=== PATIENT | female | born 1995 | race Caucasian/White ===

== ENCOUNTER 2024-06-22 08:04 | Outpatient (AMB) | payer OTHER, SELFPAY ==
--- NOTE | 2024-06-22 08:06 | MHC.PC.OV ---
Vital Signs 06/22/24 08:08 Height 5 ft 8 in Weight 282 lb BMI 42.9 BP 106/74 Blood Pressure Location Lt brachial Position Sitting Pulse 78 Pulse Source Pulse Oximeter Pulse Oximetry (%) 98 Oxygen Delivery Method Room Air Intake Visit Reasons: New patient visit PE Intake Note: Pt is here today for New patient visit PE. Allergies No Known Allergies Allergy (Verified 06/22/24 08:10) Medication List - Last Reconciled 06/22/24 by Faviola Bhardwaj MD loratadine (Claritin) 10 mg PO DAILY Tobacco use date assessed: 06/22/24 Dental Screening Dental Screen Date: 06/22/24 Did you have a dental visit in the last 12 months?: No Did you have a dental problem in the last 6 months where you did not have access to dental care?: Yes Was dental information given to patient?: Yes HPI New patient visit PE HPI Details Patient presents for new patient physical PFSH Surgical History H/O heart surgery Family History Father Atrial fibrillation Mother Hypertension Social History (Updated 06/22/24 @ 15:47 by Faviola Bhardwaj MD) Household Members Other:: works from [employer] for [employer], from [facility] Housing: House Patient Tobacco Use Status: Never used Tobacco e-Cigarette/Vaping Use: Never Used service: No Current occupational status: employed Cognitive needs: No Hearing needs: No Vision needs: Yes Questionnaire PHQ-9 Over the last 2 weeks, how often have you been bothered by any of the following problems? 1. Little interest or pleasure in doing things: not at all 2. Feeling down, depressed, or hopeless: not at all 3. Trouble falling or staying asleep, or sleeping too much: not at all 4. Feeling tired or having little energy: not at all 5. Poor appetite or overeating: not at all 6. Feeling bad about yourself - or that you are a failure or have let yourself or your family down: not at all 7. Trouble concentrating on things, such as reading the newspaper or watching television: not at all 8. Moving or speaking so slowly that other people could have noticed. Or the opposite - being so fidgety or restless that you have been moving around a lot more than usual: not at all 9. Thoughts that you would be better off or of hurting yourself in some way: not at all Total score: 0 Depression Screening Interpretation: Negative Depression Screening Done: Yes 57271 - PHQ-9 Billing: Yes Source: Developed by Drs. Nathaniel Barajas, Michelle Santana, Jim Clements and colleagues, with an educational tommy from [employer]. Thrive Questionnaire Date Thrive assessed: 06/22/24 I am a: Patient What is your living situation today?: I have a steady place to live Within the past 12 months, did the food you bought not last and you didn't have the money to get more?: Never true Within the past 12 months, did you worry whether your food would run out before you got money to buy more?: Never true Do you have trouble paying for medicines?: No Do you have trouble getting transportation to medical appointments?: No Do you have trouble paying your heating and electricity bill?: No Do you have trouble taking care of your child, family member or friend?: No Do you have trouble with day-to-day activities such as bathing, preparing meals, shopping, managing finances, etc.?: No Are you currently unemployed and looking for a job?: No Are you interested in more education?: No Please select the resources that you would like help with: None Currently or been in a relationship where the following occur: No concerns reported THRIVE Score: 0 AUDIT C Alcohol Use Questionnaire (AUDIT-C) 1. How often do you have a drink containing alcohol?: 2-4 times a month 2. How many drinks containing alcohol do you have on a typical day when you are drinking?: 1 or 2 3. How often do you have six or more drinks on one occasion?: Less than monthly Total Score: 3 GILDA-7 AMB Questionnaire GILDA-7 Date GILDA - 7 assessed: 06/22/24 Feeling nervous, anxious, or on edge: 0 = Not at all Not being able to stop or control worryin = Not at all Worrying too much about different things: 0 = Not at all Trouble relaxin = Not at all Being so restless that it is hard to sit still: 0 = Not at all Becoming easily annoyed or irritable: 0 = Not at all Feeling afraid as if something awful might happen: 0 = Not at all Total GILDA-7 score (0-4 normal; 5-9 mild; 10-14 moderate; 15-21 severe): 0 Source: Developed by Drs. Nathaniel Barajas, Michelle Santana, Jim Clements and colleagues, with an educational tommy from [employer]. GILDA-7 Assessment Billing GILDA-7 Assessment Tool: GILDA-7 Assessment 05824 Review of Systems Const All systems reviewed & are unremarkable except as noted in HPI and below Reports no additional complaints Eyes Reports no additional complaints ENT Reports no additional complaints Card Reports no additional complaints Resp Reports no additional complaints GI Reports no additional complaints Reports no additional complaints Physical exam (Primary Care) Vital Signs: Last Vital Signs Pulse 78 06/22/24 08:08 BP 106/74 06/22/24 08:08 Pulse Ox 98 06/22/24 08:08 Oxygen Delivery Method Room Air 06/22/24 08:08 BMI result Body Mass Index 42.9 Tobacco/Smoking Status: Tobacco use Status Tobacco use date assessed 06/22/24 06/22/24 08:15 Patient Tobacco Use Status Never used Tobacco 06/22/24 08:28 e-Cigarette/Vaping Use Never Used 06/22/24 08:28 PHQ-9: PHQ-9 Score PHQ-9: Total score 0 06/22/24 08:33 Depression Screening Interpretation: Negative Thrive Assessment: Date of Thrive Assessment Date Thrive assessed 06/22/24 06/22/24 08:15 Currently or been in a relationship where the following occur: No concerns reported Const General: no acute distress HENMT Ears: hearing grossly normal bilaterally Face and sinus: Yes normal facial exam Mouth: Normal oral and palatal mucosa present Eyes General: appearance normal, both eyes and all related structures Neck Neck: Yes no lymphadenopathy and Yes supple Resp Effort & Inspection: normal respiratory effort Auscultation: clear to auscultation bilaterally Cardio Rhythm: regular rhythm Heart sounds: S1 normal heart sound present, S2 normal heart sound present and Murmur heart sound present systolic II/ GI Inspection: Yes normal to inspection Palpation (GI): Soft to palpation Percussion: Yes normal to percussion Auscultation: normal bowel sounds Assessment and Plan Assessment & Plan (1) Annual physical exam: Code(s): Z00.00 - Encounter for general adult medical examination without abnormal findings Plan: Well-balanced diet regular physical activity discussed with the patient she will return for fasting blood work (2) Presence of IUD: Code(s): Z97.5 - Presence of (intrauterine) contraceptive device (3) Normal 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 Panel Fast Today Z00.00 - Encounter for general adult medical examination without abnormal findings Complete Blood Count Auto Diff Today Z00.00 - Encounter for general adult medical examination without abnormal findings Coding Level of Care Code Est Pt Prev Care 18-39y(21764) Diagnoses Annual physical exam Z00.00 Presence of IUD Z97.5 Normal pelvic exam Z01.419 Heart murmur R01.1 Additional Codes GILDA-7 Assessment Billing - GILDA-7 Assessment Tool: GILDA-7 Assessment [id number] ([id number])
[2024-06-22 08:08] VITALS: BP 106/74; PULSE 78; O2SAT 98; BMI 42.9
== END 2024-06-22 08:42 | disposition home or self-care (01) ==
PROVIDERS: PCP Internal Medicine; Visit Provider Internal Medicine
DX: Z00.00 Encounter for general adult medical examination without abnormal findings (principal); Z97.5 Presence of (intrauterine) contraceptive device; R01.1 Cardiac murmur, unspecified
CPT/HCPCS: 99395

== ENCOUNTER 2024-06-22 08:46 | Outpatient (REF) | payer OTHER, SELFPAY ==
[2024-06-22 11:09] LABS: MANUAL DIFF FLAG NO
[2024-06-22 11:15] LABS: Basophils Percent Auto 0.5 % (0-2); Eosinophils Absolute Auto 0.1 X10*3/uL (0.0-0.4); Eosinophils Percent Auto 1.9 % (0-4); Hemoglobin 12.2 g/dl (12.0-16.0); Imm Gran Abs Auto 0.02 X10*3/uL (0.00-0.03); Imm Gran Pct Auto 0.3 % (0.0-0.4); Lymphocytes Absolute Auto 1.4 X10*3/uL (1.2-4.9); Lymphocytes Percent Auto 21.7 % (20-40); Mean Corpuscular Hemoglobin 27.7 pg (27.0-33.0); Mean Corpuscular Volume 84.1 fL (80.0-98.0); Monocytes Absolute Auto 0.4 X10*3/uL (0.1-1.2); Neutrophils Absolute Auto 4.4 x10*3/uL (2.0-8.3); Neutrophils Percent Auto 69.6 % (45-73); Platelet Count 215 X10*3/uL (160-400); Red Cell Distribution Width 13.2 % (11.0-16.0); White Blood Count 6.4 X10*3/uL (4.8-10.8)
[2024-06-22 11:45] LABS: Alanine Aminotransferase 17 U/L (0-31); Albumin Level 4.2 g/dL (3.5-5.0); Alkaline Phosphatase 51 U/L (39-117); Anion Gap 11 (12-20); Aspartate Amino Transferase 17 U/L (5-31); Bilirubin Total 0.2 mg/dL (0.0-1.0); Blood Urea Nitrogen 11 mg/dL (9-16); Calcium 9.6 mg/dL (8.4-10.2); Carbon Dioxide 25 mmol/L (22-29); Chloride 109 mmol/L (96-108); Cholesterol 135 mg/dL (<200); Estimated Glomerular Filt Rate > 60; Glucose Fasting 98 mg/dL (60-99); HDL Cholesterol 40 mg/dL (>40); LDL Cholesterol Calculated 82 mg/dL (<100); Potassium 4.5 mmol/L (3.3-5.1); Sodium 140 mmol/L (135-145); Total Protein 7.3 g/dL (6.5-8.0); Triglycerides 67 mg/dL (<150)
== END 2024-06-22 08:47 | disposition home or self-care (01) ==
LOC: HO.HMGCLDS 08:46
PROVIDERS: PCP Internal Medicine; Visit Provider Internal Medicine
DX: Z00.00 Encounter for general adult medical examination without abnormal findings (principal); Z13.6 Encounter for screening for cardiovascular disorders
CPT/HCPCS: 36415; 80053; 80061; 85025

== ENCOUNTER → 2024-07-21 14:01 | Outpatient (REF) | payer OTHER, SELFPAY ==
--- NOTE | 2024-07-21 14:04 | CA_ITS ---
Transthoracic Echocardiogram Patient (Last, First, Middle): Yeimy Hernandez, Gender: Female Date of : 1995 Age: 29 Procedure Date: 07/21/2024 Procedure Type: Transthoracic Echocardiogram Location: OP Height: 172.72 cm Weight: 113.4 kg BSA: 2.25 m2 Heart Rate: bpm BP: 110 / 70 mmHg Appliance Servicer: ASHLEY Referring MD: Faviola Bhardwaj MD Volunteer Manager: Benjamin Courtney MD Symptoms: R01.1 - Cardiac murmur, unspecified Study Quality: Fair ECG Rhythm: Sinus Conclusions: - Essentially normal study Findings Left Ventricle Normal left ventricular size, thickness, and systolic function. The visually estimated ejection fraction is between 55-60%. Spectral Doppler is indicative of a normal filling pattern. Right Ventricle Normal right ventricular cavity size and systolic function. Atria Both atria are normal in size. There is no evidence of interatrial shunt. Aortic Valve Normal aortic valve structure and function. There is no aortic valve stenosis. There is no aortic valve regurgitation. Mitral Valve Normal mitral valve structure and function. There is trace mitral valve regurgitation. There is no mitral valve stenosis. Pulmonic Valve The pulmonic valve is likely normal. There is trace pulmonic valve regurgitation. Tricuspid Valve Normal tricuspid valve structure. There is trace tricuspid valve regurgitation. The right ventricular systolic pressure is normal. The right ventricular systolic pressure is 16 mmHg. Normal right atrial pressure. There is no evidence of pulmonary hypertension. Great Vessels All visible segments of the aorta are normal in size. The pulmonary artery was not well visualized. Venous The inferior vena cava is normal in size and collapses greater than 50% with inspiration. Pericardium/Pleural There is no evidence of pericardial effusion. Prior Study Comparison No prior study available for comparison. Measurements 2D Linear Measurements IVSd: 0.92 0.6-0.9/0.6-1.0 cm LVIDd: 4.93 3.9-5.3/4.2-5.9 cm LVIDd Index: 2.19 2.4-3.2/2.2-3.1 cm/m2 LVIDs: 2.93 2.0-3.6 cm LVPWd: 0.90 0.7-1.1 cm LA Diam: 3.70 2.7-3.8/3.0-4.0 cm LAIDs Index: 1.64 1.5-2.3 cm/m2 LV Mass: 194.81 67-162/88-224 g LV Mass Index: 86.58 43-95/49-115 g/m2 LVOT Diam: 2.00 3.0+(-)1.3 cm 2D Systolic Function EF 4C: 60.60 >55% EF 2C: 57.30 >55% EF BiP: 58.80 >55% Mitral Valve MV Pk E: 1.09 MV PK A: 0.83 MV Decel Time: 238.00 E/A: 1.30 E'Lateral: 10.90 E'Medial: 9.14 E/E' Med: 11.90 E/E' Lat: 10.00 PHT: 70.00 MVA PHT: 3.14 Decel [place]: 4.58 Aortic Valve AoV Pk Lamin: 1.48 AoV Mn Lamin: 1.00 AoV VTI: 0.33 AoV Pk Grad: 9.00 Aov Mn Grad: 5.00 LIZZIE Cont.VTI: 2.14 LVOT LVOT Pk Lamin: 1.03 LVOT Mn Lamin: 0.75 LVOT VTI: 0.22 LVOT Pk Grad: 4.00 LVOT Mn Grad: 2.00 LVOT Diam: 2.00 LVOT Area: 3.14 Diastolic Function MV Pk E: 1.09 MV Pk A: 0.83 E/A: 1.30 E'Medial: 9.14 E/E' Med: 11.90 E' Laterial: 10.90 E/E' Lat: 10.00 Right Ventricle TAPSE (mm): 19.40 TVS' Lamin: 10.80 Tricuspid Valve TR Pk Lamin: 1.81 TR Pk Grad: 13.00 RA Press: 3.00 RVSP: 16.00 Great Vessels Aorta Sinus of Valsalva: 2.81 2.0-3.[address] [place]: 1.94 1.7-3.4 cm Ao Asc: 2.90 2.1-3.4 cm Ao Arch: 2.40 Updated in Other Vendor System with Status of Final Benjamin Courtney MD electronically signed on 07/21/2024 3:37:39 PM with status of Final
== END ==
LOC: HO.CARD 14:01
PROVIDERS: PCP Internal Medicine; Visit Provider Internal Medicine
DX: R01.1 Cardiac murmur, unspecified (principal)
CPT/HCPCS: 93306

== ENCOUNTER → 2024-07-21 14:04 | Outpatient (BNV) | payer OTHER, SELFPAY | PROVIDERS: PCP Internal Medicine; Visit Provider Internal Medicine Cardiovascular Disease | DX: R01.1 Cardiac murmur, unspecified (principal) | CPT/HCPCS: 93306 ==

== ENCOUNTER 2025-07-24 12:01 | Outpatient (AMB) | payer OTHER, SELFPAY ==
[2025-07-24 12:37] VITALS: BMI 42.1
--- NOTE | 2025-07-24 12:37 | AM.OFFWIN_ITS ---
Intake Vital Signs 07/24/25 12:37 07/24/25 12:49 Height 5 ft 8 in 5 ft 8 in Weight 277 lb 277 lb BMI 42.1 42.1 BP 132/80 Blood Pressure Location Lt brachial Position Sitting Pulse 86 Pulse Source Pulse Oximeter Pulse Oximetry (%) 96 Intake Visit Reasons: ep irregular heart beat past few nights Intake Note: pt is here for c/o irregular heart beats, last few nights Patient Tobacco Use Status: Never used Tobacco Allergies No Known Allergies Allergy (Verified 07/24/25 12:49) Do you need a note to return to daycare/school/sports/work: Yes HPI HPI Comments History of Present Illness Details 30 y/o Female patient who presents to [facility] walk [facility] clinic with c/o Irregular Heart Beat since last week. Pt reports that sometimes her heart skips a Beat or stops for few seconds. She has been feeling for her radial pulse and counting for a minute when she has the episodes. Reports sometimes she feels no ?pulse ?heartbeat. She does have family history of Cardiac - dad has ASD. Patient was also diagnosed with ASD at age [age] and ended up having Open heart surgery. Currently denies CP, SOB, or Wheezing. She does admit to drinking 2-3 Redbulls a week and taking Marijuana Gummies. [facility] Medical History (Updated 07/24/25 @ 13:56 by Tracey Herman NP) Intermittent palpitations Surgical History H/O heart surgery Family History Father Atrial fibrillation Mother Hypertension Social History (Updated 06/22/24 @ 15:47 by Faviola Bhardwaj MD) Household Members Other:: works from [employer] for [email or web address], from [facility] Housing: House Patient Tobacco Use Status: Never used Tobacco e-Cigarette/Vaping Use: Never Used service: No Current occupational status: employed Cognitive needs: No Hearing needs: No Vision needs: Yes Review of Systems Const All systems reviewed & are unremarkable except as noted in HPI and below Physical Exam Vital Signs: Last Vital Signs Pulse 86 07/24/25 12:49 BP 132/80 07/24/25 12:49 Pulse Ox 96 07/24/25 12:49 BMI result Body Mass Index 42.1 Const General: no acute distress Nutritional Appearance: obese morbidly obese Orientation/consciousness: patient oriented x3 Resp Effort & Inspection: normal respiratory effort and able to speak in complete sentences Auscultation: clear to auscultation bilaterally, no crackles, no rales, no rhonchi and no wheezes Cardio Heart sounds: S1 normal heart sound present and S2 normal heart sound present Neuro General: patient oriented x3, gait normal and moves all extremities Psych Speech and movement: Normal speech and movement present Assessment & Plan Assessment & Plan (1) Intermittent palpitations: Code(s): R00.2 - Palpitations Plan: ECG Normal Sinus Advised not to drink Redbull or Take Gummies. F/U with PCP for Cardiology referral. Advised lifestyle changes; Weight loss, Daily exercise and healthy diet. Coding Level of Care Code Est Pt Level 4 (80582) Diagnoses Intermittent palpitations R00.2 Time Spent (min) 20
[2025-07-24 12:49] VITALS: BP 132/80; PULSE 86; O2SAT 96; BMI 42.1
== END 2025-07-24 13:50 | disposition home or self-care (01) ==
PROVIDERS: PCP Internal Medicine; Visit Provider Nurse Practitioner Family
DX: R00.2 Palpitations (principal)

== ENCOUNTER 2025-07-27 22:23 | Emergency (ER) | payer OTHER, SELFPAY ==
--- NOTE | ~2025-07-27 | XR_ITS ---
CLINICAL HISTORY: palpitation 2 view chest x-ray Comparison: None provided Findings: The lungs are clear. Normal size heart. No acute fracture. IMPRESSION: 1. No acute findings. This document has been electronically signed by: Wesly Avila MD on 07/27/2025 23:56:07
--- NOTE | 2025-07-27 22:34 | ECG_ITS ---
Test Reason : cp Blood Pressure : */* mmHG Vent. Rate : 89 BPM Atrial Rate : 89 BPM P-R Int : 134 ms QRS Dur : 84 ms QT Int : 352 ms P-R-T Axes : 6 53 59 degrees QTcB Int : 428 ms AGE AND GENDER SPECIFIC ECG ANALYSIS Normal sinus rhythm Subtle inferior ST elevations, V1 and V2 T wave inversions. Abnormal ECG No previous ECGs available Referred By: Generic ED Physician Electronically Signed By: Andrew Lopez
--- NOTE | 2025-07-27 22:44 | ED.GENADULT ---
HPI - General Adult General Chief complaint: Arrhythmia/Palpitations Stated complaint: irregular heartbeat Time Seen by Provider: 07/27/25 23:55 History of Present Illness HPI narrative: Patient is a 30-year-old female reported like that she is having skipping beats. There is no dizziness there is no nausea. There is no syncopal or near syncopal episode associated with this. Patient with take her own pulse and feels that the be missing. Patient has a previous history of ASD repaired as a child. No other medical issues. No history of recreational drug use positive history using coffee 1 cup a day no red bull recently no fever no chills no chest pain no diaphoresis no travel no history of blood clot not on control Related Data Home Medications ?Medication ?Instructions ?Recorded ?Confirmed No Known Home Meds 07/24/25 Allergies Allergy/AdvReac Type Severity Reaction Status Date / Time No Known Allergies Allergy Verified 07/27/25 22:53 Review of Systems Review of Systems: Positive skipping beats Yes all other systems are reviewed and are negative [facility] Past Medical History Attestation statement: The following information was validated with the patient. Medical History Intermittent palpitations Surgical History H/O heart surgery Family History Family History Father Atrial fibrillation Mother Hypertension Social History Social History Household Members Other:: works from [employer] for [employer], from [facility] Housing: House Patient Tobacco Use Status: Never used Tobacco Smoked in Last 30 Days: No e-Cigarette/Vaping Use: Never Used Substance Use Type: Marijuana Substance Use Frequency: Occasionally Advance Directives: No Advance Directives Information Provided: Yes Do you have a plan to hurt others: No Plan service: No Current occupational status: employed Cognitive needs: No Hearing needs: No Vision needs: Yes Physical Exam ED Exam Exam: Appearance: Alert. Oriented X3. No acute distress. Eyes: Pupils equal, round and reactive to light. ENT: Pharynx normal. Neck: Normal inspection. Neck supple. No lymph nodes noted. No crepitus CVS: Normal heart rate and rhythm. Pulses normal. Normal S1 and S2 Respiratory: No respiratory distress. Breath sounds normal. No Wheezing. No rales Abdomen: Soft and nontender. No rigidity. No distention. good BS x4 Skin: Skin warm and dry. Normal skin color. Normal skin turgor. Extremities: No lower extremity edema. Neurovascular intact to all extremities. No Lacerations. No Rash Neuro: Oriented X 3. No motor deficit. No sensory deficit. Moving all extermities. No slurred speech Vital Signs: Vital Signs - 24 hr 07/27/25 22:49 07/28/25 01:25 07/28/25 01:29 Temperature 98.0 F 98.4 F 98.4 F Pulse Rate 87 83 83 Respiratory Rate 18 18 18 Blood Pressure 131/76 112/61 112/61 Pulse Oximetry 97 95 95 Oxygen Delivery Method Room Air Room Air Room Air BMI result Body Mass Index 41.8 Course Course Course Narrative: I performed a medical screening exam on patient patient stated that she has been having intermittent palpitations. Instructed by primary care doctor to get her palpitation assess and come to the ER. Therefore she drove to the ER however when she arrived to the ER the palpitation stopped. Patient is not having any active chest pain. She states she is feeling skipped beats. She does have history of atrial septal defect in the past. No active chest pain at this time I have no concern for STEMI for the patient. I reviewed patient's EKG. Medical Decision Making Medical Decision Making [facility] Narrative: My interpretation patient's EKG showed a sinus rhythm heart rate is 80 VT QRS QTC normal no acute ST segment elevation no changes from previous. Question if patient has PVCs. Feels that 1-2 beats are missing from time to time. Patient did not have any syncopal or near syncopal episode. Explained to patient the need for close follow-up. May be a cardiac monitoring device. Patient's electrolytes are normal. TSH is normal no evidence for hypo or hyperthyroid. Hemoglobin is 12 which is normal. No evidence for anemia. Will discharge patient home close follow-up advised troponin is less than 2.7 no evidence for ACS. My interpretation patient's chest x-ray is grossly negative no pneumonia no pneumothorax Differential Diagnosis Differential Diagnoses: The differential diagnosis associated with the presentation includes Arrhythmia syncope PE ACS Admission/Observation Consideration of admission/observation: Escalation of care including admission/observation considered Lab Data MDM Lab Attestation statement: I reviewed the patient's lab results. 07/27/25 23:24 07/27/25 23:24 Labs: Lab Results 07/27/25 07/27/25 Range/Units 22:50 23:24 WBC 8.1 8.4 (4.8-10.8) X10*3/uL RBC 4.23 4.26 (4.20-5.50) X10*6/uL Hgb 12.0 12.1 (12.0-16.0) g/dl Hct 34.9 L 34.9 L (37.0-47.0) % MCV 82.5 81.9 (80.0-98.0) fL MCH 28.4 28.4 (27.0-33.0) pg MCHC 34.4 34.7 (31.0-35.0) g/dl RDW 12.7 12.7 (11.0-16.0) % Plt Count 192 189 (160-400) X10*3/uL MPV 10.7 10.8 (9.4-12.3) fL Immature Gran % (Auto) 0.2 0.4 (0.0-0.4) % Neut % (Auto) 68.9 70.2 (45-73) % Lymph % (Auto) 24.1 22.6 (20-40) % [place] % (Auto) 5.2 5.4 (2-11) % Eos % (Auto) 1.1 1.0 (0-4) % Baso % (Auto) 0.5 0.4 (0-2) % Lymph # (Auto) 2.0 1.9 (1.2-4.9) X10*3/uL [place] # (Auto) 0.4 0.5 (0.1-1.2) X10*3/uL Eos # (Auto) 0.1 0.1 (0.0-0.4) X10*3/uL Baso # (Auto) 0.0 0.0 (0.0-0.2) X10*3/uL Abs Immat Gran (auto) 0.02 0.03 (0.00-0.03) X10*3/uL Absolute Neuts (auto) 5.6 5.9 (2.0-8.3) x10*3/uL Absolute Nucleated RBC 0.000 0.000 (0.0-0.012) X10*3/uL Nucleated RBC % (auto) 0.0 0.0 (0.0-0.2) /100WBC Sodium 141 141 (135-145) mmol/L Potassium 4.2 3.8 (3.3-5.1) mmol/L Chloride 108 108 (96-108) mmol/L Carbon Dioxide 26 26 (22-29) mmol/L Anion Gap 11 L 11 L (12-20) BUN 16 16 (9-16) mg/dL Creatinine 0.98 0.96 (0.5-1.4) mg/dL Estim Creat Clear Calc 118.0 120.4 Estimated GFR > 60 > 60 Random Glucose 114 102 (60-115) mg/dL Calcium 9.3 9.2 (8.4-10.2) mg/dL Magnesium 1.9 (1.6-2.6) mg/dL Total Bilirubin 0.4 (0.0-1.0) mg/dL AST 25 (5-31) U/L ALT 24 (0-31) U/L Alkaline Phosphatase 49 (39-117) U/L Troponin I High Sens < 2.7 (<3.5-17.0) ng/L Total Protein 7.3 (6.5-8.0) g/dL Albumin 4.6 (3.5-5.0) g/dL TSH 3.92 (0.32-4.0) uIU/mL Independent Interpretation I performed an independent interpretation of an: EKG (Sinus heart rate is 80 VT QRS QTC normal no acute ST segment elevation) and Plain X-Ray (Chest x-ray negative no pneumonia no pneumothorax) Radiology Impression Discussion of test interpretation with radiology: I have reviewed the radiologist's reading. External Record Review External record reviewed: Office record Chronic Conditions Previous history of ASD Discharge Plan Discharge Clinical Impression: Heart palpitations Patient Disposition: Home, Self-Care Instructions: Heart Palpitations (ED) Prescriptions: No Action No Known Home Meds Referrals: Andrew Lopez MD [Physician, Cardiology] - 07/31/25 Interventions: ED Discharge Assessment Last Done: 07/28/25 01:29 Discharge Date/Time: 07/28/25 01:29 Print Language: Jamaican
[2025-07-27 22:49] VITALS: BP 131/76; PULSE 87; RESP 18; TEMP 36.7; O2SAT 97; BMI 41.8
[2025-07-27 22:55] LABS: MANUAL DIFF FLAG NO
[2025-07-27 22:56] LABS: Hematocrit 34.9 % (37.0-47.0); Hemoglobin 12.0 g/dl (12.0-16.0); Imm Gran Abs Auto 0.02 X10*3/uL (0.00-0.03); Imm Gran Pct Auto 0.2 % (0.0-0.4); Lymphocytes Absolute Auto 2.0 X10*3/uL (1.2-4.9); Mean Corpuscular HGB Conc 34.4 g/dl (31.0-35.0); Mean Corpuscular Hemoglobin 28.4 pg (27.0-33.0); Mean Corpuscular Volume 82.5 fL (80.0-98.0); NRBC Abs Auto 0.000 X10*3/uL (0.0-0.012); NRBC Pct Auto 0.0 /100WBC (0.0-0.2); Platelet Count 192 X10*3/uL (160-400); Red Blood Count 4.23 X10*6/uL (4.20-5.50); White Blood Count 8.1 X10*3/uL (4.8-10.8)
[2025-07-27 23:12] LABS: Alanine Aminotransferase 24 U/L (0-31); Albumin Level 4.6 g/dL (3.5-5.0); Alkaline Phosphatase 49 U/L (39-117); Anion Gap 11 (12-20); Aspartate Amino Transferase 25 U/L (5-31); Blood Urea Nitrogen 16 mg/dL (9-16); Calcium 9.3 mg/dL (8.4-10.2); Carbon Dioxide 26 mmol/L (22-29); Chloride 108 mmol/L (96-108); Creatinine Clr Calc Pharmacy 118.0; Estimated Glomerular Filt Rate > 60; Potassium 4.2 mmol/L (3.3-5.1); Sodium 141 mmol/L (135-145); Total Protein 7.3 g/dL (6.5-8.0)
[2025-07-27 23:19] LABS: Troponin-I High Sensitivity < 2.7 ng/L (<3.5-17.0)
[2025-07-27 23:28] LABS: MANUAL DIFF FLAG NO
[2025-07-27 23:29] LABS: Hematocrit 34.9 % (37.0-47.0); Hemoglobin 12.1 g/dl (12.0-16.0); Imm Gran Abs Auto 0.03 X10*3/uL (0.00-0.03); Imm Gran Pct Auto 0.4 % (0.0-0.4); Lymphocytes Absolute Auto 1.9 X10*3/uL (1.2-4.9); Mean Corpuscular HGB Conc 34.7 g/dl (31.0-35.0); Mean Corpuscular Hemoglobin 28.4 pg (27.0-33.0); Mean Corpuscular Volume 81.9 fL (80.0-98.0); NRBC Abs Auto 0.000 X10*3/uL (0.0-0.012); NRBC Pct Auto 0.0 /100WBC (0.0-0.2); Platelet Count 189 X10*3/uL (160-400); Red Blood Count 4.26 X10*6/uL (4.20-5.50); White Blood Count 8.4 X10*3/uL (4.8-10.8)
[2025-07-27 23:54] LABS: Anion Gap 11 (12-20); Blood Urea Nitrogen 16 mg/dL (9-16); Calcium 9.2 mg/dL (8.4-10.2); Carbon Dioxide 26 mmol/L (22-29); Chloride 108 mmol/L (96-108); Creatinine Clr Calc Pharmacy 120.4; Estimated Glomerular Filt Rate > 60; Magnesium 1.9 mg/dL (1.6-2.6); Potassium 3.8 mmol/L (3.3-5.1); Sodium 141 mmol/L (135-145)
--- OUTSIDE RECORDS SUMMARY | 2025-07-28 00:03 | XMS_ITS ---
Author Name [facility] Organization Unknown History of Medication Use Medication Directions Dispensed Refills Start Date End Date Stat us clindamycin 1 % lotion 11/18/2023 completed amoxicillin 875 mg-potassium clavulanate 125 mg tablet TAKE 1 TABLET BY MOUTH TWICE A DAY FOR 10 DAYS active misoprostol 200 mcg tablet 1 tab under tongue to dissolve 3 hrs prior to procedure active neomycin-polymyxin -hydrocort 3.5 mg-10,000 unit/mL-1 % ear drops,susp TAKE 4 DROPS TO AFFECTED EAR(S) 4 TIMES PER DAY FOR 7 DAYS active tretinoin 0.025 % topical cream active No known medications No known medications active Problems Problem Status Onset Date Problem Type Date of Resoluti on Source OCD (obsessive compulsive disorder) active 2019-09-13 ProblemAct [facility] Encounters Encounter Type Encounter Reason Primary Diagnosis Location Date Ambulatory 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 [facility] 06/05/2025 Ambulatory Encounter for insertion of intrauterine contraceptive device Encounter for insertion of intrauterine contraceptive device [facility] 02/24/2025 Ambulatory 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
--- OUTSIDE RECORDS SUMMARY | 2025-07-28 00:03 | XMS_ITS | Clinical Summary ---
Author Organization [facility] Address [address] [place] [address] Phone Care Team Providers Care Air Value Tester Name Role Phone Pcp, Unknown Primary Care Provider Unavailabl e Allergies No known active allergies Medications orphenadrine (NORFLEX) 100 mg tablet Take 1 tablet (100 mg total) by mouth 2 (two) times a day. 6 tablet 03/12/2022 Active ALTAVERA, 28, 0.15-0.03 mg per tablet 06/13/2022 Active Active Problems No known active problems Social History Tobacco Use Types Packs/Day Years Used Date Smoking Tobacco: Never Smokeless Tobacco: Never Alcohol Use Standard Drinks/Week Comments Yes 0 (1 standard drink = 0.6 oz pur e alcohol) ocassional Education Answer Date Recorded Are you interested in more education? Not on dmitriy e 02/28/2023 Are you concerned about learning? Not on file 02/28/2023 No 02/28/2023 No 02/28/2023 Digital Access Answer Date Recorded No 03/29/2023 No 03/29/2023 No 03/29/2023 Reliable internet access at home? Not on file 03/29/2023 Device with a working camera? Not on file Comments Unknown Sex and Gender Information Value Date Recorded Sex Assigned at Female 03/11/2022 11:50 PM EDT Legal Sex Female 11:42 PM EDT Gender Identity Female 03/11/2022 11:50 PM EDT Sexual Orientation Not on file Last Filed Vital Signs Vital Sign Reading Time Taken Comments Blood Pressure 120/74 08/07/2022 2:11 PM EDT Pulse 85 08/07/2022 2:11 PM EDT Temperature 36.6 C (97.9 F) 08/07/2022 2:11 PM EDT Respiratory Rate 16 08/07/2022 2:11 PM EDT Oxygen Saturation 98% 08/07/2022 2:11 PM EDT Inhaled Oxygen Concentration - - Weight 104.3 kg (230 lb) 08/07/2022 2:11 PM EDT Height 172.7 cm (5' 8 ) 08/07/2022 2:11 PM EDT Body Mass Index 34.97 08/07/2022 2:11 PM EDT Plan of Treatment Health Maintenance Due Date Last Done Comments Adult Td,Tdap Booster 1996 DEPRESSION SCREENING 2008 HEPATITIS C SCREENING 2014 HIV ONE-TIME SCREENING (18-6 5 YEARS) 2014 PAP SMEAR 2017 INFLUENZA VACCINE (#1) 2025 COVID-19 VACCINE (2023-2 5 season) 2025 SMOKING STATUS SCREENING (On ce After 26 Yrs) Completed 08/07/2022 HEPATITIS A VACCINES Aged Out No long er eligible based on patient's age to complete this topic HIB VACCINES Aged Out No longer eligi ble based on patient's age to complete this topic MENINGOCOCCAL VACCINES (ACWY) Aged Out No longer eligible based on patient's age to complete this topic MENINGOCOCCAL VACCINES (B) Aged Out N o longer eligible based on patient's age to complete this topic PNEUMOCOCCAL VACCINES (0-49 years) Aged Out No longer eligible based on patient's age to complete this topic Medical Devices Not on file Insurance AETNA PPO AETNA PPO AETNA PPO AETNA PPO AETNA PPO AETNA PPO AETNA PPO AETNA PPO AETNA PPO Care Teams Air Value Tester Relationship Specialty Start Date End Date Pcp, Unknown PCP - General 03/12/22 Additional Source Comments The information contained in this document represents components of the legal health record. It is not the complete legal health record.[facility]
--- OUTSIDE RECORDS SUMMARY | 2025-07-28 00:03 | XMS_ITS | Encounter Summary ---
Author Organization [facility] Address [address] [place] [address] Phone Care Team Providers Care Cafe Attendant Name Role Phone Pcp, Unknown Primary Care Provider Unavailabl e Encounter Details Date Type Department Care Team (Late st Contact Info) Description 03/12/2022 Procedure Pass [facility], Ct Scan - [address] [address] Social History Tobacco Use Types Packs/Day Years Used Date Smoking Tobacco: Never Smokeless Tobacco: Never Alcohol Use Standard Drinks/Week Comments Yes 0 (1 standard drink = 0.6 oz pur e alcohol) ocassional Comments Unknown Sex and Gender Information Value Date Recorded Sex Assigned at Female 03/11/2022 11:50 PM EDT Legal Sex Female 11:42 PM EDT Gender Identity Female 03/11/2022 11:50 PM EDT Sexual Orientation Not on file documented as of this encounter Plan of Treatment Not on file documented as of this encounter Visit Diagnoses Not on filedocumented in this encounter Care Teams Cafe Attendant Relationship Specialty Start Date End Date Pcp, Unknown PCP - General 03/12/22 documented as of this encounter Additional Source Comments The information contained in this document represents components of the legal health record. It is not the complete legal health record.[facility]
--- OUTSIDE RECORDS SUMMARY | 2025-07-28 00:03 | XMS_ITS | Clinical Summary ---
Author Organization [facility] Address [address] [place] [address] Care Team Providers Care Data Capture Specialist Name Role Phone Lito Ceja MD Primary Care Provider Allergies No known active allergies Medications No known medications Active Problems Problem Noted Date Diagnosed Date OCD (obsessive compulsive disorder) 09/13/2019 Resolved Problems Problem Noted Date Diagnosed Date Resolved Date Asthma 01/31/2019 10/29/2020 Atrial septal defect 01/31/2019 020 Family History Medical History Relation Name Comments Arrhythmia Father Heart disease Father ASD Colon cancer Maternal Grandmother Ovarian cancer Maternal Grandmother No Known Problems Mother Melanoma Paternal Grandfather No Known Problems Sister 1 No Known Problems Sister 2 Relation Name Status Comments Father Maternal Grandmother Mother Paternal Grandfather Sister 1 Sister 2 Social History Tobacco Use Types Packs/Day Years Used Date Smoking Tobacco: Never Smokeless Tobacco: Never Alcohol Use Standard Drinks/Week Comments Yes 0 (1 standard drink = 0.6 oz pur e alcohol) Comments Unknown Sex and Gender Information Value Date Recorded Sex Assigned at Not on file Legal Sex Female 7:48 PM EST Gender Identity Female 10/29/2020 8:36 AM EST Sexual Orientation Choose not to disclose 2019 8:36 AM EST 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 Not on file Not on file N ot on file Last Filed Vital Signs Vital Sign Reading Time Taken Comments Blood Pressure 112/78 10/29/2020 8:49 AM EST Pulse 85 10/29/2020 8:49 AM EST Temperature 37.3 C (99.1 F) 09/13/2019 3:06 PM EST Respiratory Rate 17 04/13/2019 3:41 PM EDT Oxygen Saturation 97% 10/29/2020 8:49 AM EST Inhaled Oxygen Concentration - - Weight 114 kg (250 lb 8 oz) 10/29/2020 8:[address] Height 172.7 cm (5' 8 ) 09/13/2019 3:06 PM EST Body Mass Index 38.09 09/13/2019 3:06 PM EST Plan of Treatment Health Maintenance Due Date Last Done Comments Hepatitis C Virus Screening 1996 HIV Screening 2009 DTaP/Tdap/Td Vaccines (1 - Tdap) 2015 Hepatitis B Vaccines (1 of 3 - 19+ 3-dose series) 2015 Influenza Vaccine 06/02/2025 09/05/2020 COVID-19 Vaccine (2 - 2024-2 6 season) 2025 02/06/2021 Pap Smear (Ages 21-65) 02/14/2027 4, 02/19/2021 HPV Vaccines (No Doses Required) Completed Pneumococcal Vaccine: Pediatric (0-5 Years) and At-Risk Patients (6 to 49 Years) Aged Out No longer eligible b ased on patient's age to complete this topic Procedures Procedure Name Priority Date/Time Associated Diagnosis Comments THINPREP PAP(RIVETER HAND)GC/CT HPV SCR RFX HPV 16,18/45 Routine 02/15/2024 9:43 AM EDT from Last 3 Months or Most Recently Relevant to Health Maintenance Results * ThinPrep Pap(Machine Spring Former)GC/CT HPV Scr Rfx HPV 16,18/45 (02/15/2024 9:43 AM EDT) Report Report [facility] Comment: Final Gynecological Cytology Report ThinPrep Pap Test, GC/CT HPV Screen, Reflex HPV Genotype SPECIMEN ADEQUACY: SATISFACTORY FOR EVALUATION; ENDOCERVICAL/TRANSFORMATION ZONE COMPONENT ABSENT/INSUFFICIENT . INTERPRETATION: NEGATIVE FOR INTRAEPITHELIAL LESION OR MALIGNANCY. Electronically Signed: Ai Spence CT (ASCP) CLINICAL INFORMATION: LMP: NG Clinical History: NG Biopsy Date: NG Specimen Source: Cervix, Endocervix Previous Pap Date: NG HPV RESULTS: HPV mRNA E6/E7 [id number] Approved: 02/16/24 Negative REF RANGE: Negative CPT Codes: 85898 ICD Codes: Z01.419 02/15/2024 9:43 AM EDT 02/16/2024 6:03 AM EDT us Mari Diez MD LAB AMB PATH/CYTO ORDERAB LES Final Result [facility] [address] [place], [place] from Last 3 Months or Most Recently Relevant to Health Maintenance Insurance Care Teams Data Capture Specialist Relationship Specialty Start Date End Date Lito Ceja MD PCP - General Internal Medicine 03/06/20
--- OUTSIDE RECORDS SUMMARY | 2025-07-28 00:04 | XMS_ITS | Patient Health Record ---
Author Organization [facility], Address [address] [place] [address] Support Name Relationship Address Phone Yeimy Hernandez Guarantor Unknown Reason For Referral No Information Plan Of Treatment No Information Insurance Providers Payer Name Payer Address Payer Phone Subscriber Number Group Number Insured Name Patient Relationship to Insured Coverage Start Date Coverage End Date Connect [employer] [address] [place] [address] [id number] Yeimy Hernandez Self - patient is the insured Medical (General) History Surgical History Surgery Date(Month/Year)
[2025-07-28 01:25] VITALS: BP 112/61; PULSE 83; RESP 18; TEMP 36.9; O2SAT 95
[2025-07-28 01:29] VITALS: BP 112/61; PULSE 83; RESP 18; TEMP 36.9; O2SAT 95
== END 2025-07-28 01:29 | disposition home or self-care (01) ==
PROVIDERS: Student in an Organized Health Care Education/Training Program; Emergency Provider Emergency Medicine Emergency Medical Services; PCP Internal Medicine
DX: R00.2 Palpitations (principal)
CPT/HCPCS: 36415; 71046; 80048; 80053; 83735; 84443; 84484; 85025; 93005; 99283; 99284

== ENCOUNTER → 2025-07-27 22:34 | Outpatient (BNV) | payer OTHER, SELFPAY | PROVIDERS: Emergency Provider Emergency Medicine Emergency Medical Services; PCP Internal Medicine; Visit Provider Internal Medicine Cardiovascular Disease | DX: I21.09 ST elevation (STEMI) myocardial infarction involving other coronary artery of anterior wall (principal) | CPT/HCPCS: 93010 ==

== ENCOUNTER → 2025-07-27 22:44 | Outpatient (BNV) | payer OTHER, SELFPAY | PROVIDERS: Emergency Provider Emergency Medicine Emergency Medical Services; PCP Internal Medicine; Visit Provider Radiology Diagnostic Radiology | DX: R00.2 Palpitations (principal) | CPT/HCPCS: 71046 ==

== ENCOUNTER 2025-08-11 12:45 | Outpatient (AMB) | payer OTHER, SELFPAY ==
[2025-08-11 12:48] VITALS: BP 120/66; PULSE 93; BMI 43.2
--- NOTE | 2025-08-11 12:48 | MHC.OFFVIS ---
Vital Signs 08/11/25 12:48 Height 5 ft 8 in Weight 283 lb 15.286 oz BMI 43.2 BP 120/66 Blood Pressure Location Lt brachial Position Sitting Pulse 93 Pulse Source Pulse Oximeter Intake Visit Reasons: hmc/f/up/palpitations Operations Lead Required: No Accompanied by: Self / Same As Patient Allergies No Known Allergies Allergy (Verified 08/11/25 12:50) Medication List - Last Reconciled 08/11/25 by Melanie Kidd NP-Antonia No Known Home Meds HPI HPI hmc/f/up/palpitations: Details: Yeimy is a 30-year-old female with past medical history of ASD status post repair age 4 who no longer follows with cardiology and was recently seen in the ER for heart palpitations without significant findings. She was referred to Cardiology in follow-up. Today she presents for cardiology consultation. She states that for the last several weeks she has noticed skipping and pauses in her heart rate. She can feel it in her chest and when she feels her radial pulse. She has no significant associated symptoms. This symptom is newer for her and causing concern. She does not get chest discomfort, concerning shortness of breath, lightheadedness, presyncope, syncope. She exercises once weekly and does Steel fighting 1 to 2 times a month. 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 She drinks alcohol socially and has edibles on occasion. She rarely drinks energy drinks. She does have 1 caffeinated beverage per day. [facility] Medical History (Updated 08/11/25 @ 16:29 by YAZ SebastianC) ASD (atrial septal defect) Intermittent palpitations Surgical History H/O heart surgery Family History Father Atrial fibrillation Mother Hypertension Social History Household Members Other:: works from home for [employer], from [employer] [facility] Housing: House Patient Tobacco Use Status: Never used Tobacco e-Cigarette/Vaping Use: Never Used Substance Use Type: Marijuana service: No Current occupational status: employed Cognitive needs: No Hearing needs: No Vision needs: Yes Review of Systems Const All systems reviewed & are unremarkable except as noted in HPI and below Denies daytime sleepiness, Denies difficulty sleeping, Denies snoring, Denies stops breathing during sleep and Denies weakness Card Details: palpitations - skips and pauses Denies chest pain, Denies rapid heart rate, Denies irregular heart rhythm, Denies claudication, Denies leg edema, Denies lightheadedness, Denies palpitations, Denies dyspnea, Denies dyspnea on exertion, Denies orthopnea, Denies paroxysmal nocturnal dyspnea and Denies slow heart rate Resp Denies cough, Denies dyspnea, Denies dyspnea on exertion and Denies snoring GI Reports no additional complaints, Denies hematochezia, Denies change in stool character and Denies dyspepsia Musc Denies abnormal gait, Denies muscle weakness and Denies numbness Neuro Denies abnormal gait, Denies numbness and Denies weakness Endo Denies palpitations Physical Exam Vital Signs: Last Vital Signs Pulse 93 08/11/25 12:48 BP 120/66 08/11/25 12:48 BMI result Body Mass Index 43.2 Const General: cooperative, healthy appearing, comfortable and no acute distress Orientation/consciousness: patient oriented x3 Neck Neck: Yes normal visual inspection Resp Effort & Inspection: normal respiratory effort Auscultation: clear to auscultation bilaterally, no crackles, no rales, no rhonchi and no wheezes Cardio Rate: regular rate Rhythm: regular rhythm Heart sounds: S1 normal heart sound present, S2 normal heart sound present, no gallops, no murmurs and no rubs Neuro General: patient oriented x3 Extrem General: Yes normal to inspection Psych Appearance: grossly normal Mental Status: mental status grossly normal Speech and movement: Normal speech and movement present Assessment & Plan Assessment & Plan (1) Heart palpitations: Code(s): R00.2 - Palpitations Category: Medical Plan: Report of heart palpitations like her heart is skipping and briefly pausing. Since consistent with extrasystoles, possible PVCs. ER evaluation without significant findings. EKG showed sinus rhythm with normal MA, QRS and QTC intervals. Labs were normal including troponin, TSH and hemoglobin. Echocardiogram done 07/21/2024 showed EF 55-60%, normal study. Will check 5 day Holter monitor to assess for arrhythmia. Reviewed reduction in alcohol, stimulants. Continue exercise as tolerated. Cardiology follow-up 4-6 weeks, sooner if needed. (2) ASD (atrial septal defect): Comment: s/p repair age 4 Code(s): Q21.10 - Atrial septal defect, unspecified Category: Medical Plan: Reported history of ASD repair, age 4. Patient believes this was [facility]. She followed with Cardiology until age 11. Recent echo was normal. Plan Time spent on chart review, documentation, interview and assessment Orders: Orders ECG 5 day holter monitor Today R00.2 - Palpitations Coding Level of Care Code New Pt Level 4 (72370) Complex EM visit Add On G2211 Diagnoses Heart palpitations R00.2 ASD (atrial septal defect) Q21.10 Time Spent (min) 28
== END 2025-08-11 13:15 | disposition home or self-care (01) ==
LOC: HO.HCS 12:46
PROVIDERS: PCP Internal Medicine; Visit Provider Nurse Practitioner Family
DX: R00.2 Palpitations (principal); Q21.10 Atrial septal defect, unspecified
CPT/HCPCS: 99204; G2211

== ENCOUNTER 2025-08-21 12:33 | Outpatient (AMB) | payer OTHER, SELFPAY ==
--- NOTE | 2025-08-21 12:39 | MHC.PC.OV ---
Vital Signs 08/21/25 12:40 Height 5 ft 8 in Weight 278 lb BMI 42.3 BP 106/68 Blood Pressure Location Lt brachial Position Sitting Respiration 18 Pulse 80 Pulse Source Pulse Oximeter Temp 98.7 F Temp Source Oral Pulse Oximetry (%) 98 Oxygen Delivery Method Room Air Intake Visit Reasons: Heart beat Hairmasters Manager Required: No Accompanied by: Self / Same As Patient Allergies No Known Allergies Allergy (Verified 08/21/25 12:41) Tobacco use date assessed: 08/21/25 Dental Screening Dental Screen Date: 08/21/25 Did you have a dental visit in the last 12 months?: Yes Did you have a dental problem in the last 6 months where you did not have access to dental care?: No Was dental information given to patient?: Patient has dentist HPI HPI Comments History of Present Illness Details Patient presents for physical [facility] Medical History (Updated 08/21/25 @ 13:30 by Faviola Bhardwaj MD) Presence of IUD Normal pelvic exam Annual physical exam ASD (atrial septal defect) Intermittent palpitations Surgical History H/O heart surgery Family History Father Atrial fibrillation Mother Hypertension Social History Household Members Other:: works from [place] for [employer], from [employer] Housing: House Patient Tobacco Use Status: Never used Tobacco e-Cigarette/Vaping Use: Never Used Substance Use Type: Marijuana service: No Current occupational status: employed Cognitive needs: No Hearing needs: No Vision needs: Yes Questionnaire PHQ-9 Over the last 2 weeks, how often have you been bothered by any of the following problems? 1. Little interest or pleasure in doing things: not at all 2. Feeling down, depressed, or hopeless: not at all 3. Trouble falling or staying asleep, or sleeping too much: not at all 4. Feeling tired or having little energy: not at all 5. Poor appetite or overeating: not at all 6. Feeling bad about yourself - or that you are a failure or have let yourself or your family down: not at all 7. Trouble concentrating on things, such as reading the newspaper or watching television: not at all 8. Moving or speaking so slowly that other people could have noticed. Or the opposite - being so fidgety or restless that you have been moving around a lot more than usual: not at all 9. Thoughts that you would be better off or of hurting yourself in some way: not at all Total score: 0 Depression Screening Interpretation: Negative Depression Screening Done: Yes 39230 - PHQ-9 Billing: Yes Source: Developed by Drs. Nathaniel Barajas, Michelle Santana, Jim Clements and colleagues, with an educational tommy from [employer]. Thrive Questionnaire Date Thrive assessed: 08/14/25 I am a: Patient What is your living situation today?: I have a steady place to live Within the past 12 months, did the food you bought not last and you didn't have the money to get more?: Never true Within the past 12 months, did you worry whether your food would run out before you got money to buy more?: Never true Do you have trouble paying for medicines?: No Do you have trouble getting transportation to medical appointments?: No Do you have trouble paying your heating and electricity bill?: No Do you have trouble taking care of your child, family member or friend?: No Do you have trouble with day-to-day activities such as bathing, preparing meals, shopping, managing finances, etc.?: No Are you currently unemployed and looking for a job?: No Are you interested in more education?: Yes Please select the resources that you would like help with: None Currently or been in a relationship where the following occur: No concerns reported THRIVE Score: 0 AUDIT C Alcohol Use Questionnaire (AUDIT-C) 1. How often do you have a drink containing alcohol?: 2-4 times a month 2. How many drinks containing alcohol do you have on a typical day when you are drinking?: 1 or 2 3. How often do you have six or more drinks on one occasion?: Less than monthly Total Score: 3 GILDA-7 AMB Questionnaire GILDA-7 Date GILDA - 7 assessed: 08/21/25 Feeling nervous, anxious, or on edge: 0 = Not at all Not being able to stop or control worryin = Not at all Worrying too much about different things: 0 = Not at all Trouble relaxin = Not at all Being so restless that it is hard to sit still: 0 = Not at all Becoming easily annoyed or irritable: 0 = Not at all Feeling afraid as if something awful might happen: 0 = Not at all Total GILDA-7 score (0-4 normal; 5-9 mild; 10-14 moderate; 15-21 severe): 0 Source: Developed by Drs. Nathaniel Barajas, Michelle Santana, Jim Clements and colleagues, with an educational tommy from [employer]. GILDA-7 Assessment Billing GILDA-7 Assessment Tool: GILDA-7 Assessment 26479 Review of Systems Const All systems reviewed & are unremarkable except as noted in HPI and below Eyes Reports no additional complaints ENT Reports no additional complaints Card Reports no additional complaints Resp Reports no additional complaints GI Reports no additional complaints Reports no additional complaints Physical exam (Primary Care) Vital Signs: Last Vital Signs Temp 98.7 F 08/21/25 12:40 Pulse 80 08/21/25 12:40 Resp 18 08/21/25 12:40 BP 106/68 08/21/25 12:40 Pulse Ox 98 08/21/25 12:40 Oxygen Delivery Method Room Air 08/21/25 12:40 BMI result Body Mass Index 42.3 Tobacco/Smoking Status: Tobacco use Status Tobacco use date assessed 08/21/25 08/21/25 12:44 Patient Tobacco Use Status Never used Tobacco 08/21/25 12:44 e-Cigarette/Vaping Use Never Used 08/21/25 12:44 PHQ-9: PHQ-9 Score PHQ-9: Total score 0 08/21/25 12:44 Depression Screening Interpretation: Negative Thrive Assessment: Date of Thrive Assessment Date Thrive assessed 08/14/25 08/21/25 12:44 Currently or been in a relationship where the following occur: No concerns reported Const General: no acute distress HENMT Head: Yes normal to inspection Ears: TM's normal bilaterally Face and sinus: Yes normal facial exam Throat: Yes posterior oropharynx normal Eyes General: appearance normal, both eyes and all related structures Neck Neck: Yes no lymphadenopathy and Yes supple Resp Effort & Inspection: normal respiratory effort Auscultation: clear to auscultation bilaterally Cardio Rhythm: regular rhythm Heart sounds: S1 normal heart sound present and S2 normal heart sound present GI Inspection: Yes normal to inspection Palpation (GI): Soft to palpation Percussion: Yes normal to percussion Auscultation: normal bowel sounds Coding Level of Care Code Est Pt Prev Care 18-39y(01303) Diagnoses Annual physical exam Z00.00 Additional Codes GILDA-7 Assessment Billing - GILDA-7 Assessment Tool: GILDA-7 Assessment 97198 ([id number]) PHQ-9 - 72495 - PHQ-9 Billing: Yes ([id number]) Assessment & Plan Assessment & Plan (1) Annual physical exam: Code(s): Z00.00 - Encounter for general adult medical examination without abnormal findings Category: Medical Plan: Well-balanced diet regular physical activity discussed with the patient. She will return for fasting blood work. Patient is up-to-date with the Pap smear by recruitment advertising manager Orders: Orders Lipid Panel Today Z00.00 - Encounter for general adult medical examination without abnormal findings Complete Blood Count Auto Diff Today Z00.00 - Encounter for general adult medical examination without abnormal findings IRON PROFILE Today Z00.00 - Encounter for general adult medical examination without abnormal findings UA w Microscopic Today Z00.00 - Encounter for general adult medical examination without abnormal findings
[2025-08-21 12:40] VITALS: BP 106/68; PULSE 80; RESP 18; TEMP 37.1; O2SAT 98; BMI 42.3
== END 2025-08-21 13:33 | disposition home or self-care (01) ==
PROVIDERS: PCP Internal Medicine; Visit Provider Internal Medicine
DX: Z00.00 Encounter for general adult medical examination without abnormal findings (principal)

== ENCOUNTER → 2025-08-21 12:33 | Outpatient (BNVA) | payer OTHER, SELFPAY | PROVIDERS: PCP Internal Medicine; Visit Provider Internal Medicine | DX: Z00.00 Encounter for general adult medical examination without abnormal findings (principal) | CPT/HCPCS: 96127 ==

== ENCOUNTER → 2025-08-28 09:35 | Outpatient (REF) | payer OTHER, SELFPAY ==
--- NOTE | 2025-08-28 09:38 | HM_ITS ---
Conclusion: 1. Patient was monitored for total period of 5 days 2. Baseline was normal sinus rhythm with average heart of 83 beats per minute 3. No significant pauses noted 4. Rare PACs noted with 4 short runs of SVT, longest lasting 10 beats and the fastest at 191 beats per minute 5. Patient marked the counter 4 times with symptoms of fluttering in his chest all correlated with isolated PACs, with no symptoms during SVT MTDD
--- OUTSIDE RECORDS SUMMARY | 2025-08-28 10:50 | XMS_ITS | Clinical Summary ---
Author Organization [facility] Address [address] [place] [address] Phone Care Team Providers Care Hot Roll Inspector Name Role Phone Pcp, Unknown Primary Care [...] 2017 INFLUENZA VACCINE (#1) 2025 COVID-19 VACCINE (2024-2 6 season) 2025 SMOKING STATUS SCREENING (On ce [...] PPO AETNA PPO AETNA PPO Care Teams Hot Roll Inspector Relationship Specialty Start Date End Date Pcp, Unknown PCP - General 03/12/22 Additional Source Comments The information contained in this document represents components of the legal health record. It is not the complete legal health record.[facility]
--- OUTSIDE RECORDS SUMMARY | 2025-08-28 10:50 | XMS_ITS | Encounter Summary ---
Author Organization [facility] Address [address] [place] [address] Phone Care Team Providers Care Drill Press Set Up Operator Name Role Phone Pcp, Unknown Primary Care Provider Unavailabl e Encounter Details Date Type Department Care Team (Late st Contact Info) Description 03/12/2022 Procedure Pass [facility], Ct Scan - [address] [address] Social History Tobacco Use Types Packs/Day Years [...] on filedocumented in this encounter Care Teams Drill Press Set Up Operator Relationship Specialty Start Date End Date Pcp, Unknown PCP - General 03/12/22 documented as of this encounter Additional Source Comments The information contained in this document represents components of the legal health record. It is not the complete legal health record.[facility]
--- OUTSIDE RECORDS SUMMARY | 2025-08-28 10:51 | XMS_ITS | Clinical Summary ---
Author Organization [facility] Address [address] [place] [id number] Care Team Providers Care Certified Ophthalmic Medical Technician Name Role Phone Lito Ceja MD Primary [...] Name Priority Date/Time Associated Diagnosis Comments THINPREP PAP(TURKISH LINE ATTENDANT)GC/CT HPV SCR RFX HPV 16,18/45 Routine 02/15/2024 9:43 AM EDT from Last 3 Months or Most Recently Relevant to Health Maintenance Results * ThinPrep Pap(Telegraph Repeater Technician)GC/CT HPV Scr Rfx HPV 16,18/45 (02/15/2024 9:43 [...] Date: NG HPV RESULTS: HPV mRNA E6/E7 [id number] Approved: 02/16/24 Negative REF RANGE: Negative CPT Codes: 95515 ICD Codes: Z01.419 02/15/2024 9:43 AM EDT 02/16/2024 6:03 AM EDT us Mari Diez MD LAB AMB PATH/CYTO ORDERAB LES Final Result [facility] [address] [place], [place] from Last 3 Months or Most Recently Relevant to Health Maintenance Insurance Care Teams Certified Ophthalmic Medical Technician Relationship Specialty Start Date End Date Lito Ceja MD PCP - General Internal Medicine 03/06/20
--- OUTSIDE RECORDS SUMMARY | 2025-08-28 10:51 | XMS_ITS | Patient Health Record ---
Author Organization [facility], Address [address] [place] [address] Support Name Relationship Address Phone Yeimy Hernandez Guarantor Unknown Reason For Referral No Information Plan Of Treatment No Information Insurance Providers Payer Name Payer Address Payer Phone Subscriber Number Group Number Insured Name Patient Relationship to Insured Coverage Start Date Coverage End Date [employer] [address] [place] [address] [id number] Yeimy Hernandez Self - patient is the insured Medical (General) History Surgical History Surgery Date(Month/Year)
[2025-08-28 13:15] LABS: MANUAL DIFF FLAG NO
[2025-08-28 13:17] LABS: Appearance Urine Turbid; Glucose Urine UA Negative (Negative); PH 5.5 (5.0-9.0); Specific Gravity - Urine 1.025 (1.005-1.025)
[2025-08-28 13:40] LABS: Hematocrit 36.4 % (37.0-47.0); Hemoglobin 12.0 g/dl (12.0-16.0); Imm Gran Abs Auto 0.02 X10*3/uL (0.00-0.03); Imm Gran Pct Auto 0.4 % (0.0-0.4); Lymphocytes Absolute Auto 1.3 X10*3/uL (1.2-4.9); Mean Corpuscular HGB Conc 33.0 g/dl (31.0-35.0); Mean Corpuscular Hemoglobin 28.8 pg (27.0-33.0); Mean Corpuscular Volume 87.3 fL (80.0-98.0); NRBC Abs Auto 0.000 X10*3/uL (0.0-0.012); NRBC Pct Auto 0.0 /100WBC (0.0-0.2); Platelet Count 193 X10*3/uL (160-400); Red Blood Count 4.17 X10*6/uL (4.20-5.50); White Blood Count 5.7 X10*3/uL (4.8-10.8)
[2025-08-28 14:04] LABS: Cholesterol 123 mg/dL (<200); HDL Cholesterol 38 mg/dL (>40); Iron 61 mcg/dL (30-160); Percent Iron Saturation 27 % (15-50); Total Iron Binding Capacity 230 mcg/dL (228-428); Triglycerides 62 mg/dL (<150); Unsaturated Iron Binding 169 ug/dL
== END ==
LOC: HO.CARD 09:35
PROVIDERS: Absent Provider Internal Medicine; PCP Internal Medicine; Visit Provider Nurse Practitioner Family
DX: Z00.00 Encounter for general adult medical examination without abnormal findings (principal); R00.2 Palpitations; Z13.6 Encounter for screening for cardiovascular disorders; Z13.0 Encounter for screening for diseases of the blood and blood-forming organs and certain disorders involving the immune mechanism
CPT/HCPCS: 36415; 80061; 81001; 83540; 85025; 93242

== ENCOUNTER → 2025-08-28 09:38 | Outpatient (BNV) | payer OTHER, SELFPAY | PROVIDERS: Absent Provider Internal Medicine; PCP Internal Medicine; Visit Provider Internal Medicine Cardiovascular Disease | DX: I49.1 Atrial premature depolarization (principal) | CPT/HCPCS: 93244 ==

== ENCOUNTER 2025-09-18 10:04 | Outpatient (AMB) | payer OTHER, SELFPAY ==
[2025-09-18 10:17] VITALS: BP 120/80; PULSE 82; BMI 42.6
--- NOTE | 2025-09-18 10:17 | A.OFFVIS_ITS ---
Vital Signs 09/18/25 10:17 Height 5 ft 8 in Weight 279 lb 15.793 oz BMI 42.6 BP 120/80 Blood Pressure Location Lt brachial Position Sitting Pulse 82 Pulse Source Pulse Oximeter Intake Visit Reasons: 6 wk follow up/ holter Accompanied by: Self / Same As Patient Allergies No Known Allergies Allergy (Verified 09/18/25 10:20) Medication List - Last Reconciled 09/18/25 by Melanie Kidd NP-C No Known Home Meds HPI HPI 6 wk follow up/ holter: Details: Yeimy is a 30-year-old female with past medical history of ASD status post repair age 4, who was recently seen in the ER for heart palpitations without significant findings. She was referred to Cardiology and last visit a Holter monitor was ordered. She now here for follow-up. Today she reports that she does feel skipping and pauses in her heart rate. She is not sure she is feeling sustained rapid beats. She has no significant associated symptoms. She does not get chest discomfort, concerning shortness of breath, lightheadedness, presyncope, syncope. She exercises once weekly and does Steel fighting 1 to 2 times a month. 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 She drinks alcohol socially and has edibles on occasion. She rarely drinks energy drinks. She does have 1 caffeinated beverage per day. [facility] Medical History Presence of IUD Normal pelvic exam Annual physical exam ASD (atrial septal defect) Intermittent palpitations Surgical History H/O heart surgery Family History Father Atrial fibrillation Mother Hypertension Social History Household Members Other:: works from [employer] for [employer], from [facility] [employer] Housing: House Patient Tobacco Use Status: Never used Tobacco e-Cigarette/Vaping Use: Never Used Substance Use Type: Marijuana service: No Current occupational status: employed Cognitive needs: No Hearing needs: No Vision needs: Yes Review of Systems Const All systems reviewed & are unremarkable except as noted in HPI and below Denies daytime sleepiness, Denies difficulty sleeping, Denies snoring, Denies stops breathing during sleep and Denies weakness Card Denies chest pain, Reports rapid heart rate, Denies irregular heart rhythm, Denies claudication, Denies leg edema, Denies lightheadedness, Reports palpitations, Denies dyspnea, Denies dyspnea on exertion, Denies orthopnea, Denies paroxysmal nocturnal dyspnea and Denies slow heart rate Resp Denies cough, Denies dyspnea, Denies dyspnea on exertion and Denies snoring GI Reports no additional complaints, Denies hematochezia, Denies change in stool character and Denies dyspepsia Musc Denies abnormal gait, Denies muscle weakness and Denies numbness Neuro Denies abnormal gait, Denies numbness and Denies weakness Endo Reports palpitations Physical Exam Vital Signs: Last Vital Signs Pulse 82 09/18/25 10:17 BP 120/80 09/18/25 10:17 BMI result Body Mass Index 42.6 Const General: cooperative, healthy appearing, comfortable and no acute distress Orientation/consciousness: patient oriented x3 Neck Neck: Yes normal visual inspection Resp Effort & Inspection: normal respiratory effort Auscultation: clear to auscultation bilaterally, no crackles, no rales, no rhonchi and no wheezes Cardio Rate: regular rate Rhythm: regular rhythm Heart sounds: S1 normal heart sound present, S2 normal heart sound present, no gallops, no murmurs and no rubs Neuro General: patient oriented x3 Extrem General: Yes normal to inspection Psych Appearance: grossly normal Mental Status: mental status grossly normal Speech and movement: Normal speech and movement present Assessment & Plan Assessment & Plan (1) Heart palpitations: Code(s): R00.2 - Palpitations Category: Medical Plan: Report of heart palpitations like her heart is skipping and briefly pausing. Since consistent with extrasystoles. ER evaluation without significant findings. EKG showed sinus rhythm with normal UT, QRS and QTC intervals. Labs were normal including troponin, TSH and hemoglobin. Echocardiogram done 07/21/2024 showed EF 55-60%, normal study. Holter monitor 08/28/2025 for 5 days shows sinus rhythm with average heart rate 83, rare PACs, 4 SVT runs, longest 10 beats, rate 191. Symptoms correlated with PACs. Test results reviewed with her. Diagnosis of PAC and brief SVT discussed. Reviewed reduction in alcohol, stimulants. Continue exercise as tolerated. Call if increasing heart palpitations. Vagal maneuvers reviewed. ED care if needed for sustained rapid rates. Recommended she get Audinate mobile device Cardiology follow-up 6 months, sooner if needed. (2) ASD (atrial septal defect): Comment: s/p repair age 4 Code(s): Q21.10 - Atrial septal defect, unspecified Category: Medical Plan: Reported history of ASD repair, age 4. Patient believes this was [facility]. She followed with Cardiology until age 11. Recent echo was normal. (3) PAC (premature atrial contraction): Code(s): I49.1 - Atrial premature depolarization Category: Medical (4) SVT (supraventricular tachycardia): Code(s): I47.1 - Supraventricular tachycardia Category: Medical Plan: Brief episodes seen on holter Plan We discussed the results of the Holter monitor, which showed normal rhythm with PACs and SVT runs. I advised the patient to reduce caffeine intake, particularly eliminating Red Bull, and to monitor symptoms. We reviewed home maneuvers for managing SVT episodes, such as deep breathing and the diver's reflex. I explained that if episodes become frequent or sustained, medical intervention may be necessary. A follow-up is scheduled in six months, with instructions to contact us sooner if symptoms worsen. Patient Instructions: - Monitor symptoms and reduce caffeine intake. - Eliminate Red Bull from diet. - Practice home maneuvers for SVT: deep breathing and diver's reflex. - Follow up in six months or sooner if symptoms worsen. Patient was informed and verbally consented to the use of an ambient scribe for clinic note documentation during this visit. Visit time spent on chart review, interview, assessment, orders, documentation. Coding Level of Care Code Est Pt Level 3 (82451) Complex EM visit Add On G2211 Diagnoses Heart palpitations R00.2 ASD (atrial septal defect) Q21.10 PAC (premature atrial contraction) I49.1 SVT (supraventricular tachycardia) I47.1 Time Spent (min) 24
== END 2025-09-18 10:57 | disposition home or self-care (01) ==
LOC: HO.HCS 10:05
PROVIDERS: PCP Internal Medicine; Visit Provider Nurse Practitioner Family
DX: R00.2 Palpitations (principal); Q21.10 Atrial septal defect, unspecified; I49.1 Atrial premature depolarization; I47.10 Supraventricular tachycardia, unspecified
CPT/HCPCS: 99213; G2211